=== PATIENT | male | born 1955 | race Caucasian/White ===

== ENCOUNTER → 2016-11-03 | Outpatient (CLI) | payer BC ==
[2016-11-03 10:20] LABS: BUN 11 mg/dL (7-18)
[2016-11-03 10:21] LABS: GFR (ESTIMATED) 76 ML/MIN (>60); HEMOGLOBIN 15.2 g/dL (14.1-18.0); LYMPH # 3.2 K/mm3 (0.7-4.5); LYMPH % 36.5 % (10-50)
== END ==
LOC: LAB 09:04
PROVIDERS: Internal Medicine Adolescent Medicine
DX: E78.5 Hyperlipidemia, unspecified (principal); E11.9 Type 2 diabetes mellitus without complications; I10 Essential (primary) hypertension